=== PATIENT | male | born 1985 | race Caucasian/White ===

== ENCOUNTER 2018-12-21 11:40 | Outpatient (CLI) | payer OTHER | END 2018-12-21 11:41 | disposition home or self-care (01) | LOC: DI 11:40 | PROVIDERS: ATTEND Student in an Organized Health Care Education/Training Program | DX: I99.9 Unspecified disorder of circulatory system (principal); Q23.1 Congenital insufficiency of aortic valve | CPT/HCPCS: 93306 ==

== ENCOUNTER 2019-04-22 18:52 | Emergency (ER) | payer OTHER ==
--- NOTE | 2019-04-22 19:38 | ED Physician Documentation ---
History of Present Illness - Stated complaint Stated Complaint: MALE - Chief complaint Chief Complaint: UTI - History obtained from History obtained from: Patient (Previously healthy 34-year-old [place] He was healing okay and went back to work today. He was mostly just at his desk and has increased bruising and swelling especially on the left.) Review of Systems Constitutional: reports: Reviewed and negative Cardiac: reports: Reviewed and negative Respiratory: reports: Reviewed and negative PD PAST MEDICAL HISTORY - Present Medications Home Medications: Ambulatory Orders Medication Instructions Recorded Confirmed No Known Home Medications 04/22/19 04/22/19 - Allergies Allergies/Adverse Reactions: Allergies Allergy/AdvReac Type Severity Reaction Status Date / Time No Known Drug Allergies Allergy Verified 04/22/19 19:05 PD ED PE NORMAL - Vitals Vital signs reviewed: Yes - General General: Alert and oriented X 3, No acute distress - Abdomen Abdomen: Soft, Non tender - Male Male : Other (The anterior part of both scrotal Halves are bruised especially in the left. The left testicle is tender but the lie seems normal and I do not appreciate any masses. There is not much swelling per se.) - Neuro Neuro: Alert and oriented X 3, Normal speech Results - Vitals Vitals: Vital Signs - 24 hr 04/22/19 04/22/19 19:05 21:25 Temperature 37.1 C Heart Rate 71 70 Respiratory 18 16 Rate Blood Pressure 140/90 H 136/84 H O2 Saturation 99 100 Oxygen O2 Source Room air - Labs Labs: Laboratory Tests 04/22/19 19:11 Urine Color YELLOW Urine Clarity CLEAR Urine pH 7.5 Ur Specific [place] 1.010 Urine Protein NEGATIVE Urine Glucose (UA) NEGATIVE Urine Ketones NEGATIVE Urine Occult Blood NEGATIVE Urine Nitrite NEGATIVE Urine Bilirubin NEGATIVE Urine Urobilinogen 0.2 (NORMAL) Ur Leukocyte Esterase NEGATIVE Ur Microscopic Review NOT INDICATED Urine Culture Comments NOT INDICATED PD MEDICAL DECISION MAKING - ED course ED course: He has some postoperative pain and bruising which actually seems fairly appropriate for being post vasectomy. Ultrasound was negative. He declined pain medication. Departure - Departure Disposition: 01 Home, Self Care Clinical Impression: Evaluation postoperative testicular pain within 30 days vasectomy Condition: Good Record reviewed to determine appropriate education?: Yes Instructions: Vasectomy Comments: Rest and stay off your feet for the most part through this week. Return for new worsening symptoms. Your blood pressure was elevated today on check into the emergency department. This does not mean that you have hypertension, it is a common phenomenon to come to the emergency department and have elevated blood pressure. I recommend that you see your primary care physician within the week to have it rechecked when you are feeling better. Discharge Date/Time: 04/22/19 21:26
[2019-04-22 19:45] LABS: BILIRUBIN,URINE NEGATIVE (NEGATIVE); CLARITY,URINE CLEAR (CLEAR); GLUCOSE, URINE (UA) NEGATIVE (NEGATIVE); KETONES,URINE (UA) NEGATIVE (NEGATIVE); LEUKOCYTE ESTERASE, URINE NEGATIVE (NEGATIVE); NITRITE,URINE NEGATIVE (NEGATIVE); OCCULT BLOOD,URINE NEGATIVE (NEGATIVE); PH,URINE 7.5 PH (5.0-7.5); PROTEIN,URINE NEGATIVE (NEGATIVE); UROBILINOGEN,URINE 0.2 (NORMAL) E.U./dL (NORMAL)
--- NOTE | 2019-04-22 21:19 | Ultrasound Report ---
Reason: post vasectomy pain/bruisung Procedure Date: 04/22/2019 Accession Number: [id number] / [id number] Procedure: US - Testicle w/Doppler CPT Code: Final Report FULL RESULT: EXAM: SCROTAL ULTRASOUND EXAM DATE: 04/22/2019 08:35 PM. CLINICAL HISTORY: Post vasectomy pain/bruising. COMPARISON: None. TECHNIQUE: Real-time scanning was performed with static images obtained. Color-flow images were utilized. FINDINGS: Right: Testis: 4.4 x 2.1 x 2.4 cm. Overall normal size and echogenicity, but there are a few scattered foci of echogenicity with shadowing, likely representing coarse calcifications, measuring up to 3 mm. The most on any one field of view is three. Epididymis: 1.2 x 0.8 x 0.7 cm. Normal size and echotexture. No mass or abnormal blood flow. Hydrocele: None. Varicocele: None. Left: Testis: 4.3 x 2.1 x 2.6 cm. Normal size and echotexture. No mass, calcification, or abnormal blood flow. Epididymis: 0.7 x 0.7 x 1.3 cm. Normal size and echotexture. No mass or abnormal blood flow. Hydrocele: Trace Varicocele: None. Other: No drainable fluid collections identified in the scrotum. IMPRESSION: Trace left hydrocele, otherwise normal scrotal ultrasound without evidence of torsion [facility]
[2019-04-22 21:27] VITALS: BP 136/84
== END 2019-04-22 21:26 | disposition home or self-care (01) ==
LOC: ED 18:52
DX: G89.18 Other acute postprocedural pain (principal); N50.812 Left testicular pain; Z98.52 Vasectomy status; N43.3 Hydrocele, unspecified; R03.0 Elevated blood-pressure reading, without diagnosis of hypertension
CPT/HCPCS: 76870; 81001; 81003; 87086; 93975; 99282; 99284